=== PATIENT | male | born 1965 | race Two or more races ===

== ENCOUNTER 2020-04-22 14:36 | Emergency (ER) | payer OTHER ==
[~2020-04-22] VITALS: Ht 182.9 cm; Wt 127.0 kg
[2020-04-22 14:39] VITALS: BP 145/92
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
[2020-04-22] MEDS ORDERED: DICL50TA4 PO (16:24)
[2020-04-22] MEDS ORDERED: CYCL10TA2 PO (16:24)
== END 2020-04-22 16:34 | disposition home or self-care (01) ==
LOC: EDSEX 14:36 → ER 14:36
DX: M54.5 Low back pain (principal); M25.512 Pain in left shoulder; M25.562 Pain in left knee; G89.11 Acute pain due to trauma; E11.9 Type 2 diabetes mellitus without complications; V49.88XA Car occupant (driver) (passenger) injured in other specified transport accidents, initial encounter; Y93.89 Activity, other specified; Y92.488 Other paved roadways as the place of occurrence of the external cause; Y99.8 Other external cause status
CPT/HCPCS: 72131; 73030; 73130; 73562; 99284-25